=== PATIENT | male | born 1975 | race Caucasian/White ===

== ENCOUNTER 2016-10-30 07:06 | Day surgery (SDC) | payer BC ==
--- NOTE | ~2016-10-30 | OP ---
Record Of Operation [facility] [address] [place]. [address] NAME: CUATE WILLIS 2ND : 79 STATUS : [facility]#: [id number] AGE: 40 ADM/REG DATE : 10/30/16 MR#: [id number] REPORT SERV DATE: 10/31/16 DICTATED BY: SUJIT ALVA II DATE: 10/31/16 REPORT STATUS : Draft TRANSCRIBED BY: WENDI DATE: 10/31/16 DATE OF PROCEDURE: PREOPERATIVE DIAGNOSES: 1. Left lower extremity radiculopathy. 2. Recurrent herniated nucleus pulposus L5-S1, masses. 3. Mild L4-5 degenerative disk disease. 4. Severe L5-S1 degenerative disk disease. POSTOP DIAGNOSES: 1. Left lower extremity radiculopathy. 2. Recurrent herniated nucleus pulposus L5-S1, masses. 3. Mild L4-5 degenerative disk disease. 4. Severe L5-S1 degenerative disk disease. PROCEDURE: 1. Revision left L5-S1 microdiskectomy. 2. Use of the microscope and stereotactic spinal imaging. SURGEON: Sujit Alva M.D. FLUIDS: One liter of lactated Ringer's. ESTIMATED BLOOD LOSS: 15 mL. DRAINS: None. COMPLICATIONS: None. 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. He underwent a successful surgery last summer. He was noted at that time as having rather significant degenerative disk disease at that level but fortunately not severe back pain. 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 He has been having again significant buttock and leg pain. Imaging identified unfortunately a very large recurrent disk herniation. We discussed the pros and cons of observation versus surgery. He again was not having severe back pain, so overall I did not advocate for a fusion. However, I advised him and his family that if he had an another recurrence that we would recommend fusion at that time. We discussed the risks of the surgery as well as the benefits and he wished to proceed. DESCRIPTION OF PROCEDURE: After informed consent was obtained, the patient was brought to the operating room at his request and general anesthesia achieved. He was placed in the prone position and the back was prepped and draped in a sterile fashion. The stereotactic spinal pin was placed into the right iliac crest followed by completion of the intraoperative CT scan. The stereotactic guidance was then used throughout the remainder of Record Of Operation [facility] [id number] [place]. [address] NAME: CUATE WILLIS 2ND : 79 STATUS : [facility] PAT#: [id number] AGE: 40 ADM/REG DATE : 10/30/16 MR#: [id number] REPORT SERV DATE: 10/31/16 DICTATED BY: SUJIT ALVA II DATE: 10/31/16 REPORT STATUS : Draft TRANSCRIBED BY: MODL DATE: 10/31/16 the case. At this point, the minimally invasive incision was performed on the left. We then placed the 20 mm tubular retractor. The microscope was then brought into place and under microscopic visualization with the assistance of stereotactic guidance the laminotomy was then revised. Just a very small amount of additional facet had to be sacrificed. At this point, the curved curettes were used to detach scar from the undersurface. The dura was then well identified. The S1 nerve root was not identified at this point, because of the massive disk herniation. Several extremely large fragments were now delivered from the canal. The S1 nerve root was then visible at this point. The S1 nerve root was now found to be acceptably decompressed. At this point, the irrigation was performed followed by confirmation of hemostasis. Depo-Medrol was then placed over the nerve root followed by standard closure and the patient was extubated and transferred to PACU in stable condition. We will ask him to not lift more than approximately 25 pounds for six weeks and avoid high impact exercise. I had a nice discussion with his family postoperatively, and I gave him the details of the surgical findings and answered all their questions appropriately. IDA/WENDI Sujit Alva II, M.D. / [id number] CC: He Amado II, MD
[~2016-10-30 07:06] MED LIST: FLEX PO; LIDODERM TOP; MOBIC15 MG PO; MSCONTIN PO; PERCOCET1 TA4 PO; V5 PO
== END 2016-10-30 16:01 | disposition home or self-care (01) ==
LOC: SDC 07:06
PROVIDERS: Orthopaedic Surgery
PROC: 0SB40ZZ Excision of Lumbosacral Disc, Open Approach (ICD-10-PCS; principal; 2016-10-30 08:15)
DX: M51.17 Intervertebral disc disorders with radiculopathy, lumbosacral region (principal); Z98.890 Other specified postprocedural states; F17.200 Nicotine dependence, unspecified, uncomplicated
CPT/HCPCS: 88304; 88311; A9270-GY; J0690; J1030; J1170; J2250; J2270; J2405; J2710; J3010